=== PATIENT | male | born 1955 | race Caucasian/White ===

== ENCOUNTER 2016-09-26 18:06 | Emergency (ER) | payer SELFPAY ==
[2016-09-26 17:37] LABS: BASO % 0.2 % (0-2); EOS % 1.2 % (0-7); EOSINOPHIL ABSOLUTE COUNT 0.1 tho/cmm (0.0-0.7); HCT-HEMATOCRIT 45.4 % (36.0-53.5); HGB-HEMOGLOBIN 15.4 gm/dl (13.5-17.0); MCH (MEAN CORPUSCULAR HGB) 31.8 pg (28.0-32.0); MCHC MEAN CORPUSCULAR HGB CONC 33.9 % (32.0-36.0); MCV (MEAN CELL VOLUME) 93.8 fl (82.0-96.0); MEAN PLATELET VOLUME 11.1 cmc (9.4-12.4); MONOCYTE ABSOLUTE COUNT 0.5 tho/cmm (0.0-1.2); NEUTROPHIL ABSOLUTE COUNT 3.3 tho/cmm (1.6-8.0); NEUTROPHIL-AUTOMATED 3.3 tho/cmm (1.6-8.0); NEUTROPHILS % 55.6 % (40-80); PLATELET COUNT 188 tho/cmm (150-450); RED BLOOD COUNT 4.84 mil/cmm (4.40-5.70); RED CELL DISTRIBUTION WIDTH 13.3 % (12.4-16.4); WHITE BLOOD COUNT 5.9 tho/cmm (4.0-10.0)
[2016-09-26 17:53] LABS: ALBUMIN 3.5 g/dl (3.5-5.0); ALKALINE PHOSPHATASE 77 U/L (33-138); ALT/SGPT 16 U/L (12-78); BILIRUBIN,TOTAL 0.2 mg/dl (0.0-1.5); BLOOD UREA NITROGEN 23 mg/dl (6-24); CALCIUM 8.7 mg/dl (8.5-10.5); CARBON DIOXIDE-VENOUS 27 mmol/L (22-32); CHLORIDE 110 mmol/l (96-110); CREATININE 0.93 mg/dl (0.60-1.30); GLUCOSE 98 mg/dL (70-110); SODIUM 143 mmol/L (135-145); eGFR VALUE FOR BLACK >90 mL/Min
[~2016-09-26 18:06] MED LIST: ALEVE220 M4 PO
[2016-09-26 18:12] LABS: ANION GAP 10 mmol/L (0-20); AST/SGOT 15 U/L (10-40); POTASSIUM 4.2 mmol/L (3.7-5.1)
[2017-02-22] MEDS ORDERED: VENTOLIN HFA18 G2 PO (12:39)
== END 2016-09-26 19:17 ==
LOC: EDMED 18:06
PROVIDERS: Physician Assistant
DX: K40.90 Unilateral inguinal hernia, without obstruction or gangrene, not specified as recurrent (principal); F17.210 Nicotine dependence, cigarettes, uncomplicated; Z98.890 Other specified postprocedural states
CPT/HCPCS: J7030; Q9967